=== PATIENT | female | born 1980 | race Caucasian/White ===

== ENCOUNTER 2023-03-11 23:33 | Emergency (ER) | payer MEDICAID, MEDICARE, OTHER ==
[2023-03-12] MEDS ORDERED: Ipratropium/Albuterol 3 ML NEB ONE ×2 (01:15→02:47)
[2023-03-12] MEDS ORDERED: methylPREDNISolone Sod Succ/PF 125 MG/2 ML VIAL ONE (01:35)
[2023-03-12] MEDS ORDERED: Morphine 4 MG/ML VIAL ONE (01:35)
[2023-03-12 02:03] LABS: Hematocrit 41.4 % (36.0-47.0); Hemoglobin 13.6 g/dL (12.0-16.0); Manual Diff?? YES; Mean Corpuscular HGB CONC 32.9 g/dL (32.0-36.0); Mean Corpuscular Hemoglobin 30.6 pg (27.0-31.0); Mean Corpuscular Volume 93.2 fl (78.0-98.0); Mean Platelet Volume 12.8 fL (7.4-10.4); Platelet Count 112 10x3/uL (130-400); Red Blood Cell (RBC) Count 4.44 mill/uL (4.20-5.40); White Blood Cell (WBC) Count 4.4 10x3/uL (4.8-10.8)
[2023-03-12 02:09] LABS: Delete Auto Diff?? YES
[2023-03-12 02:33] LABS: Band 4 % (5-11); CellaVision Operator ID LAB.CLH1; Eosinophils 2 % (0-10); Large Platelets 6.9 % (0-5); Lymphocytes 52 % (21-51); Monocytes 3 % (0-10); Neutrophil 27 % (42-75); Platelet Adequacy Comment Platelets Decreased; Reactive Lymphocytes 11 % (0-10); Total Cell Count 101
[2023-03-12 02:42] LABS: ALT (SGPT) 32 U/L (8-55); AST (SGOT) 34 U/L (5-34); Albumin 3.7 g/dL (3.5-5.0); Alkaline Phosphatase 164 U/L (40-110); Anion Gap 16 mmol/L (10-20); BUN (Urea Nitrogen) 10 mg/dL (7.0-18.7); Calc. Creatinine Clearance 0 mL/min (70-130); Calcium 8.8 mg/dL (7.8-10.44); Carbon Dioxide 22 mmol/L (22-29); Chloride 110 mmol/L (98-107); Estimated GFR 113; Globulin 3.2 g/dL (2.4-3.5); Glucose 85 mg/dL (70-105); Potassium 3.5 mmol/L (3.5-5.1); Protein, Total 6.9 g/dL (6.0-8.3); Sodium 144 mmol/L (136-145)
[2023-03-12 02:56] LABS: Bacteria/HPF None Seen HPF (None Seen); Bilirubin Negative (Negative); Blood, Urine Negative (Negative); CAUTI Indications for Culture Dysuria,urgency,freq; Clarity Turbid (Clear); Glucose, Urine (Dipstick) Normal (Negative); Ketone, Urine Negative (Negative); Leukocyte Negative Leu/uL (Negative); Mucous/LPF 3+ LPF (<2+); Nitrite Negative (Negative); Protein, Urine (Dipstick) 30 mg/dL (Neg-Trace); RBC/HPF 0-3 HPF (0-3); Specific Gravity, Urine 1.041 (1.002-1.036); pH, Urine 5.5 (5.0-9.0)
[2023-03-12 02:57] LABS: Urine Culture Reflex No No
[2023-03-12 03:26] LABS: SARS-CoV-2 NAA Rapid Test Not Detected (NotDetected)
[2023-03-12] MEDS ORDERED: HYDROcodone/Acetaminophen 5/325 mg Tablet ONE (03:35)
[2023-03-12 03:57] LABS: Bilirubin, Total 0.3 mg/dL (0.2-1.2)
== END 2023-03-12 04:45 | disposition home or self-care (01) ==
LOC: ERS 23:33
DX: J44.1 Chronic obstructive pulmonary disease with (acute) exacerbation (principal); I10 Essential (primary) hypertension; F17.210 Nicotine dependence, cigarettes, uncomplicated
CPT/HCPCS: 51701; 71045; 80053; 81001; 83880; 85025; 93005; 96374; 96375; J2270; J2930; J7620

== ENCOUNTER 2023-03-12 09:39 | Inpatient (IN) | payer MEDICARE, MEDICAID ==
[2023-03-12] MEDS ORDERED: HYDROcodone/Acetaminophen 5/325 mg Tablet ONE (10:57)
[2023-03-12] MEDS ORDERED: Acetaminophen 325 MG TAB PO PRN (17:15)
[2023-03-12 17:38] VITALS: BMI 42.8
[2023-03-12] MEDS ORDERED: FLU VACC QS2023-24(6MOS UP)/PF 60 MCG/0.5 ML SYRINGE IM ONE (18:00)
[2023-03-12] MEDS: HYDROcodone/Acetaminophen 10/325 mg Tablet PO PRN (18:10)
[2023-03-12] MEDS: QUEtiapine 300 MG TAB PO SCH (21:18)
[2023-03-12] MEDS: risperiDONE 0.25 MG TAB PO SCH (21:18)
[2023-03-12] MEDS: Topiramate 100 MG TAB PO SCH (21:18)
[2023-03-12] MEDS: levETIRAcetam 500 MG TAB PO SCH (21:19)
[2023-03-12] MEDS: Phenytoin Extended Release 100 MG CAP PO SCH (21:20)
[2023-03-12] MEDS: Ipratropium/Albuterol 3 ML NEB NEB PRN (21:44)
[2023-03-12] MEDS: Pregabalin 75 MG CAP PO SCH (22:16)
[2023-03-13] MEDS: HYDROcodone/Acetaminophen 10/325 mg Tablet PO PRN ×3 (06:24→22:51)
[2023-03-13 08:57] LABS: #Eosinphils 0.1 thou/uL (0.0-0.7); #Monocytes 0.3 thou/uL (0.11-0.59); #Neutrophils 1.4 thou/uL (1.40-6.50); %Basophils 0.2 % (0.0-1.0); %Eosinophils 1.4 % (0.0-10.0); %Lymphocytes 57.5 % (21.0-51.0); %Monocytes 7.4 % (0.0-10.0); %Neutrophils 33.3 % (42.0-75.0); Hematocrit 46.5 % (36.0-47.0); Hemoglobin 14.9 g/dL (12.0-16.0); Mean Corpuscular Hemoglobin 30.6 pg (27.0-31.0); Mean Corpuscular Volume 95.5 fl (78.0-98.0); Mean Platelet Volume 12.7 fL (7.4-10.4); Platelet Count 150 10x3/uL (130-400); RBC Distribution Width 12.7 % (11.5-14.5); Red Blood Cell (RBC) Count 4.87 mill/uL (4.20-5.40); White Blood Cell (WBC) Count 4.3 10x3/uL (4.8-10.8)
[2023-03-13 09:04] LABS: Anion Gap 16 mmol/L (10-20); BUN (Urea Nitrogen) 8 mg/dL (7.0-18.7); Calc. Creatinine Clearance 175 mL/min (70-130); Calcium 8.6 mg/dL (7.8-10.44); Carbon Dioxide 20 mmol/L (22-29); Chloride 110 mmol/L (98-107); Estimated GFR 113; Glucose 74 mg/dL (70-105); Potassium 3.6 mmol/L (3.5-5.1); Sodium 142 mmol/L (136-145)
[2023-03-13] MEDS: Ipratropium/Albuterol 3 ML NEB NEB PRN (09:30)
[2023-03-13] MEDS: QUEtiapine 300 MG TAB PO SCH ×2 (09:39→21:16)
[2023-03-13] MEDS: levETIRAcetam 500 MG TAB PO SCH ×2 (09:39→21:16)
[2023-03-13] MEDS: Phenytoin Extended Release 100 MG CAP PO SCH ×2 (09:39→21:21)
[2023-03-13] MEDS: Topiramate 100 MG TAB PO SCH ×2 (09:39→21:14)
[2023-03-13] MEDS: Pregabalin 75 MG CAP PO SCH ×2 (09:39→21:14)
[2023-03-13] MEDS: Ipratropium/Albuterol 3 ML NEB NEB SCH ×2 (13:20→18:37)
[2023-03-13] MEDS ORDERED: ALPRAZolam 1 MG TAB PO SCH (14:00)
[2023-03-13] MEDS: risperiDONE 0.25 MG TAB PO SCH (21:25)
[2023-03-14] MEDS: HYDROcodone/Acetaminophen 10/325 mg Tablet PO PRN ×4 (05:08→23:34)
[2023-03-14] MEDS: Ipratropium/Albuterol 3 ML NEB NEB SCH ×3 (06:58→18:57)
[2023-03-14 07:55] LABS: #Eosinphils 0.1 thou/uL (0.0-0.7); #Monocytes 0.4 thou/uL (0.11-0.59); #Neutrophils 1.8 thou/uL (1.40-6.50); %Basophils 0.2 % (0.0-1.0); %Eosinophils 1.6 % (0.0-10.0); %Lymphocytes 55.3 % (21.0-51.0); %Monocytes 8.2 % (0.0-10.0); %Neutrophils 34.3 % (42.0-75.0); Hematocrit 41.9 % (36.0-47.0); Hemoglobin 13.7 g/dL (12.0-16.0); Mean Corpuscular HGB CONC 32.7 g/dL (32.0-36.0); Mean Corpuscular Hemoglobin 30.6 pg (27.0-31.0); Mean Corpuscular Volume 93.7 fl (78.0-98.0); Mean Platelet Volume 12.4 fL (7.4-10.4); Platelet Count 172 10x3/uL (130-400); RBC Distribution Width 12.7 % (11.5-14.5); Red Blood Cell (RBC) Count 4.47 mill/uL (4.20-5.40); White Blood Cell (WBC) Count 5.1 10x3/uL (4.8-10.8)
[2023-03-14 08:18] LABS: Anion Gap 14 mmol/L (10-20); BUN (Urea Nitrogen) 17 mg/dL (7.0-18.7); Calc. Creatinine Clearance 153 mL/min (70-130); Calcium 8.8 mg/dL (7.8-10.44); Carbon Dioxide 25 mmol/L (22-29); Chloride 108 mmol/L (98-107); Estimated GFR 106; Glucose 89 mg/dL (70-105); Potassium 3.7 mmol/L (3.5-5.1); Sodium 143 mmol/L (136-145)
[2023-03-14] MEDS: Pregabalin 75 MG CAP PO SCH ×2 (09:18→21:15)
[2023-03-14] MEDS: ALPRAZolam 1 MG TAB PO PRN ×2 (09:18→21:15)
[2023-03-14] MEDS: levETIRAcetam 500 MG TAB PO SCH ×2 (09:18→21:15)
[2023-03-14] MEDS: FLUoxetine HCl 20 MG CAP PO SCH (09:18)
[2023-03-14] MEDS: Atorvastatin Calcium 40 MG TAB PO SCH (09:19)
[2023-03-14] MEDS: Phenytoin Extended Release 100 MG CAP PO SCH ×2 (09:19→21:15)
[2023-03-14] MEDS: QUEtiapine 300 MG TAB PO SCH ×2 (09:19→21:15)
[2023-03-14] MEDS: Topiramate 100 MG TAB PO SCH ×2 (09:19→21:15)
[2023-03-14 16:54] LABS: Amphetamine Not Detected (NotDetected); Barbiturates Screen Detected (NotDetected); Benzodiazepine Screen Detected (NotDetected); Cocaine Metabolite Screen Not Detected (NotDetected); Methadone Not Detected (NotDetected); Methamphetamine Not Detected (NotDetected); Opiate Screen Detected (NotDetected); Oxycodone Screen Not Detected (NotDetected); Phencyclidine (PCP) Not Detected (NotDetected); THC/Cannabinoid Screen Detected (NotDetected); Tricyclic Screen Detected (NotDetected)
[2023-03-14] MEDS: risperiDONE 0.25 MG TAB PO SCH (21:15)
[2023-03-15] MEDS: HYDROcodone/Acetaminophen 10/325 mg Tablet PO PRN ×4 (05:52→18:06)
[2023-03-15] MEDS: ALPRAZolam 1 MG TAB PO PRN (06:37)
[2023-03-15] MEDS: Ipratropium/Albuterol 3 ML NEB NEB SCH ×3 (08:22→18:06)
[2023-03-15] MEDS: Phenytoin Extended Release 100 MG CAP PO SCH ×2 (08:44→21:38)
[2023-03-15] MEDS: Atorvastatin Calcium 40 MG TAB PO SCH (08:45)
[2023-03-15] MEDS: Topiramate 100 MG TAB PO SCH ×2 (08:45→21:38)
[2023-03-15] MEDS: QUEtiapine 300 MG TAB PO SCH ×2 (08:45→21:38)
[2023-03-15] MEDS: FLUoxetine HCl 20 MG CAP PO SCH (08:45)
[2023-03-15] MEDS: levETIRAcetam 500 MG TAB PO SCH ×2 (08:45→21:38)
[2023-03-15] MEDS: Pregabalin 75 MG CAP PO SCH ×2 (08:46→21:38)
[2023-03-15] MEDS: Ipratropium/Albuterol 3 ML NEB NEB PRN (08:47)
[2023-03-15 15:45] LABS: #Eosinphils 0.2 thou/uL (0.0-0.7); #Monocytes 0.5 thou/uL (0.11-0.59); %Basophils 0.3 % (0.0-1.0); %Eosinophils 2.3 % (0.0-10.0); %Lymphocytes 32.5 % (21.0-51.0); %Monocytes 6.6 % (0.0-10.0); %Neutrophils 57.9 % (42.0-75.0); Hematocrit 44.5 % (36.0-47.0); Hemoglobin 14.5 g/dL (12.0-16.0); Mean Corpuscular HGB CONC 32.6 g/dL (32.0-36.0); Mean Corpuscular Volume 95.3 fl (78.0-98.0); Mean Platelet Volume 12.6 fL (7.4-10.4); Platelet Count 193 10x3/uL (130-400); Red Blood Cell (RBC) Count 4.67 mill/uL (4.20-5.40)
[2023-03-15 16:30] LABS: Anion Gap 10 mmol/L (10-20); BUN (Urea Nitrogen) 18 mg/dL (7.0-18.7); Calc. Creatinine Clearance 160 mL/min (70-130); Calcium 9.3 mg/dL (7.8-10.44); Carbon Dioxide 22 mmol/L (22-29); Chloride 110 mmol/L (98-107); Estimated GFR 110; Glucose 122 mg/dL (70-105); Sodium 138 mmol/L (136-145)
[2023-03-15] MEDS ORDERED: ALPRAZolam 1 MG TAB PO PRN (16:58)
[2023-03-15] MEDS: risperiDONE 0.25 MG TAB PO SCH (21:38)
[2023-03-16] MEDS: Ipratropium/Albuterol 3 ML NEB NEB SCH ×4 (06:43→23:30)
[2023-03-16 07:48] LABS: #Eosinphils 0.2 thou/uL (0.0-0.7); #Monocytes 0.5 thou/uL (0.11-0.59); #Neutrophils 3.6 thou/uL (1.40-6.50); %Basophils 0.3 % (0.0-1.0); %Eosinophils 2.7 % (0.0-10.0); %Lymphocytes 39.6 % (21.0-51.0); %Monocytes 6.6 % (0.0-10.0); %Neutrophils 50.5 % (42.0-75.0); Hematocrit 44.7 % (36.0-47.0); Hemoglobin 14.1 g/dL (12.0-16.0); Mean Corpuscular HGB CONC 31.5 g/dL (32.0-36.0); Mean Corpuscular Hemoglobin 30.6 pg (27.0-31.0); Mean Platelet Volume 12.3 fL (7.4-10.4); Platelet Count 190 10x3/uL (130-400); RBC Distribution Width 13.1 % (11.5-14.5); Red Blood Cell (RBC) Count 4.61 mill/uL (4.20-5.40); White Blood Cell (WBC) Count 7.1 10x3/uL (4.8-10.8)
[2023-03-16] MEDS: Pregabalin 75 MG CAP PO SCH ×2 (08:38→21:38)
[2023-03-16] MEDS: Phenytoin Extended Release 100 MG CAP PO SCH ×2 (08:38→21:37)
[2023-03-16] MEDS: FLUoxetine HCl 20 MG CAP PO SCH (08:39)
[2023-03-16] MEDS: HYDROcodone/Acetaminophen 10/325 mg Tablet PO PRN ×5 (08:40→21:42)
[2023-03-16] MEDS: QUEtiapine 300 MG TAB PO SCH ×2 (08:40→21:36)
[2023-03-16] MEDS: levETIRAcetam 500 MG TAB PO SCH ×2 (08:40→21:36)
[2023-03-16] MEDS: Topiramate 100 MG TAB PO SCH ×2 (08:40→21:36)
[2023-03-16] MEDS: Atorvastatin Calcium 40 MG TAB PO SCH (08:41)
[2023-03-16 08:44] LABS: Anion Gap 12 mmol/L (10-20); BUN (Urea Nitrogen) 18 mg/dL (7.0-18.7); Calc. Creatinine Clearance 164 mL/min (70-130); Calcium 9.1 mg/dL (7.8-10.44); Carbon Dioxide 20 mmol/L (22-29); Chloride 111 mmol/L (98-107); Estimated GFR 111; Glucose 94 mg/dL (70-105); Potassium 4.1 mmol/L (3.5-5.1); Sodium 139 mmol/L (136-145)
[2023-03-16] MEDS: risperiDONE 0.25 MG TAB PO SCH (21:36)
[2023-03-16] MEDS ORDERED: Ipratropium/Albuterol 3 ML NEB ONE (23:22)
[2023-03-17 04:38] LABS: #Eosinphils 0.2 thou/uL (0.0-0.7); #Monocytes 0.7 thou/uL (0.11-0.59); %Basophils 0.3 % (0.0-1.0); %Eosinophils 3.6 % (0.0-10.0); %Lymphocytes 40.5 % (21.0-51.0); %Monocytes 10.3 % (0.0-10.0); %Neutrophils 44.7 % (42.0-75.0); Hematocrit 42.7 % (36.0-47.0); Hemoglobin 13.6 g/dL (12.0-16.0); Mean Corpuscular HGB CONC 31.9 g/dL (32.0-36.0); Mean Corpuscular Hemoglobin 30.4 pg (27.0-31.0); Mean Corpuscular Volume 95.5 fl (78.0-98.0); Mean Platelet Volume 12.9 fL (7.4-10.4); Platelet Count 202 10x3/uL (130-400); RBC Distribution Width 12.9 % (11.5-14.5); Red Blood Cell (RBC) Count 4.47 mill/uL (4.20-5.40); White Blood Cell (WBC) Count 6.6 10x3/uL (4.8-10.8)
[2023-03-17 05:00] LABS: Anion Gap 10 mmol/L (10-20); BUN (Urea Nitrogen) 19 mg/dL (7.0-18.7); Calc. Creatinine Clearance 160 mL/min (70-130); Calcium 9.2 mg/dL (7.8-10.44); Carbon Dioxide 23 mmol/L (22-29); Chloride 110 mmol/L (98-107); Estimated GFR 110; Glucose 103 mg/dL (70-105); Potassium 4.2 mmol/L (3.5-5.1); Sodium 139 mmol/L (136-145)
[2023-03-17] MEDS: Ipratropium/Albuterol 3 ML NEB NEB SCH ×3 (06:59→18:16)
[2023-03-17] MEDS: FLUoxetine HCl 20 MG CAP PO SCH (08:30)
[2023-03-17] MEDS: levETIRAcetam 500 MG TAB PO SCH ×2 (08:30→20:30)
[2023-03-17] MEDS: Topiramate 100 MG TAB PO SCH ×2 (08:31→20:30)
[2023-03-17] MEDS: Atorvastatin Calcium 40 MG TAB PO SCH (08:31)
[2023-03-17] MEDS: QUEtiapine 300 MG TAB PO SCH ×2 (08:31→20:30)
[2023-03-17] MEDS: Pregabalin 75 MG CAP PO SCH ×2 (08:31→20:35)
[2023-03-17] MEDS: HYDROcodone/Acetaminophen 10/325 mg Tablet PO PRN ×4 (08:32→20:31)
[2023-03-17] MEDS: Phenytoin Extended Release 100 MG CAP PO SCH ×2 (08:33→20:30)
[2023-03-17] MEDS: methylPREDNISolone Sod Succ 40 MG VIAL IVP SCH ×2 (10:56→17:37)
[2023-03-17] MEDS: Calcium Carbonate 500 MG ChewTAB PO PRN (18:10)
[2023-03-17] MEDS: risperiDONE 0.25 MG TAB PO SCH (20:30)
[2023-03-17] MEDS: predniSONE 20 MG TAB PO SCH (20:31)
[2023-03-17] MEDS: ALPRAZolam 0.5 MG TAB PO PRN (21:28)
[2023-03-18] MEDS: HYDROcodone/Acetaminophen 10/325 mg Tablet PO PRN ×4 (06:42→20:32)
[2023-03-18] MEDS: Calcium Carbonate 500 MG ChewTAB PO PRN ×2 (06:42→15:40)
[2023-03-18 06:58] LABS: #Monocytes 0.1 thou/uL (0.11-0.59); #Neutrophils 5.2 thou/uL (1.40-6.50); %Basophils 0.2 % (0.0-1.0); %Eosinophils 0.2 % (0.0-10.0); %Lymphocytes 18.3 % (21.0-51.0); %Monocytes 1.7 % (0.0-10.0); %Neutrophils 78.8 % (42.0-75.0); Hemoglobin 14.3 g/dL (12.0-16.0); Mean Corpuscular HGB CONC 31.8 g/dL (32.0-36.0); Mean Corpuscular Hemoglobin 30.7 pg (27.0-31.0); Mean Corpuscular Volume 96.6 fl (78.0-98.0); Mean Platelet Volume 13.2 fL (7.4-10.4); Platelet Count 216 10x3/uL (130-400); RBC Distribution Width 12.9 % (11.5-14.5); Red Blood Cell (RBC) Count 4.66 mill/uL (4.20-5.40); White Blood Cell (WBC) Count 6.6 10x3/uL (4.8-10.8)
[2023-03-18] MEDS: Ipratropium/Albuterol 3 ML NEB NEB SCH ×3 (07:11→19:07)
[2023-03-18 07:43] LABS: Anion Gap 14 mmol/L (10-20); BUN (Urea Nitrogen) 20 mg/dL (7.0-18.7); Calc. Creatinine Clearance 169 mL/min (70-130); Calcium 9.3 mg/dL (7.8-10.44); Carbon Dioxide 18 mmol/L (22-29); Chloride 110 mmol/L (98-107); Estimated GFR 112; Glucose 148 mg/dL (70-105); Potassium 4.7 mmol/L (3.5-5.1); Sodium 137 mmol/L (136-145)
[2023-03-18] MEDS: levETIRAcetam 500 MG TAB PO SCH ×2 (08:37→20:33)
[2023-03-18] MEDS: Pregabalin 75 MG CAP PO SCH ×2 (08:38→20:33)
[2023-03-18] MEDS: Atorvastatin Calcium 40 MG TAB PO SCH (08:39)
[2023-03-18] MEDS: FLUoxetine HCl 20 MG CAP PO SCH (08:39)
[2023-03-18] MEDS: Topiramate 100 MG TAB PO SCH ×2 (08:39→20:32)
[2023-03-18] MEDS: QUEtiapine 300 MG TAB PO SCH ×2 (08:39→20:33)
[2023-03-18] MEDS: Phenytoin Extended Release 100 MG CAP PO SCH ×2 (08:39→20:32)
[2023-03-18] MEDS: predniSONE 20 MG TAB PO SCH (08:39)
[2023-03-18] MEDS: traZODone HCl 50 MG TAB PO SCH ×2 (10:46→11:37)
[2023-03-18] MEDS: risperiDONE 0.25 MG TAB PO SCH (20:33)
[2023-03-18] MEDS: ALPRAZolam 0.5 MG TAB PO PRN (21:21)
[2023-03-19 05:08] LABS: #Monocytes 0.5 thou/uL (0.11-0.59); #Neutrophils 4.3 thou/uL (1.40-6.50); %Basophils 0.3 % (0.0-1.0); %Eosinophils 0.3 % (0.0-10.0); %Lymphocytes 35.4 % (21.0-51.0); %Monocytes 6.9 % (0.0-10.0); %Neutrophils 56.4 % (42.0-75.0); Hematocrit 42.2 % (36.0-47.0); Hemoglobin 13.7 g/dL (12.0-16.0); Mean Corpuscular HGB CONC 32.5 g/dL (32.0-36.0); Mean Corpuscular Hemoglobin 30.9 pg (27.0-31.0); Mean Corpuscular Volume 95.3 fl (78.0-98.0); Mean Platelet Volume 13.4 fL (7.4-10.4); Platelet Count 190 10x3/uL (130-400); RBC Distribution Width 12.9 % (11.5-14.5); Red Blood Cell (RBC) Count 4.43 mill/uL (4.20-5.40); White Blood Cell (WBC) Count 7.6 10x3/uL (4.8-10.8)
[2023-03-19 05:38] LABS: Anion Gap 13 mmol/L (10-20); BUN (Urea Nitrogen) 19 mg/dL (7.0-18.7); Calc. Creatinine Clearance 184 mL/min (70-130); Calcium 9.2 mg/dL (7.8-10.44); Carbon Dioxide 21 mmol/L (22-29); Chloride 110 mmol/L (98-107); Estimated GFR 114; Glucose 136 mg/dL (70-105); Potassium 3.3 mmol/L (3.5-5.1); Sodium 141 mmol/L (136-145)
[2023-03-19] MEDS: HYDROcodone/Acetaminophen 10/325 mg Tablet PO PRN ×5 (06:39→23:32)
[2023-03-19] MEDS: Ipratropium/Albuterol 3 ML NEB NEB SCH ×3 (07:04→19:35)
[2023-03-19] MEDS: Atorvastatin Calcium 40 MG TAB PO SCH (08:52)
[2023-03-19] MEDS: QUEtiapine 300 MG TAB PO SCH ×2 (08:53→21:01)
[2023-03-19] MEDS: FLUoxetine HCl 20 MG CAP PO SCH (08:53)
[2023-03-19] MEDS: Topiramate 100 MG TAB PO SCH ×2 (08:53→21:01)
[2023-03-19] MEDS: Pregabalin 75 MG CAP PO SCH ×2 (08:53→20:57)
[2023-03-19] MEDS: predniSONE 20 MG TAB PO SCH (08:53)
[2023-03-19] MEDS: Phenytoin Extended Release 100 MG CAP PO SCH ×2 (08:53→21:07)
[2023-03-19] MEDS: levETIRAcetam 500 MG TAB PO SCH ×2 (08:53→21:00)
[2023-03-19] MEDS: Calcium Carbonate 500 MG ChewTAB PO PRN (08:54)
[2023-03-19] MEDS ORDERED: Benzonatate 100 MG CAP PO PRN (16:42)
[2023-03-19] MEDS ORDERED: Benzonatate 100 MG CAP PO SCH (16:45)
[2023-03-19] MEDS: ALPRAZolam 1 MG TAB PO PRN (17:20)
[2023-03-19] MEDS: risperiDONE 0.25 MG TAB PO SCH (20:59)
[2023-03-20 04:52] LABS: Chloride 111 mmol/L (98-107); Potassium 4.1 mmol/L (3.5-5.1); Sodium 139 mmol/L (136-145)
[2023-03-20 04:53] LABS: Calcium 8.6 mg/dL (7.8-10.44); Glucose 87 mg/dL (70-105)
[2023-03-20 04:55] LABS: Anion Gap 17 mmol/L (10-20); Carbon Dioxide 15 mmol/L (22-29)
[2023-03-20 04:57] LABS: BUN (Urea Nitrogen) 27 mg/dL (7.0-18.7); Calc. Creatinine Clearance 164 mL/min (70-130); Estimated GFR 111
[2023-03-20] MEDS: Ipratropium/Albuterol 3 ML NEB NEB SCH ×3 (08:11→19:28)
[2023-03-20] MEDS: levETIRAcetam 500 MG TAB PO SCH ×2 (08:44→21:25)
[2023-03-20] MEDS: ALPRAZolam 1 MG TAB PO PRN ×2 (08:46→16:17)
[2023-03-20] MEDS: QUEtiapine 300 MG TAB PO SCH ×2 (08:46→21:27)
[2023-03-20] MEDS: Atorvastatin Calcium 40 MG TAB PO SCH (08:46)
[2023-03-20] MEDS: HYDROcodone/Acetaminophen 10/325 mg Tablet PO PRN ×4 (08:47→21:26)
[2023-03-20] MEDS: FLUoxetine HCl 20 MG CAP PO SCH (08:47)
[2023-03-20] MEDS: Pregabalin 75 MG CAP PO SCH ×2 (08:47→21:25)
[2023-03-20] MEDS: predniSONE 20 MG TAB PO SCH (08:47)
[2023-03-20] MEDS: Topiramate 100 MG TAB PO SCH ×2 (08:47→21:26)
[2023-03-20] MEDS: Phenytoin Extended Release 100 MG CAP PO SCH ×2 (08:52→21:24)
[2023-03-20] MEDS ORDERED: Fleet Saline Enema 133 ML BOT PR SCH (09:00)
[2023-03-20 10:07] LABS: #Eosinphils 0.1 thou/uL (0.0-0.7); #Monocytes 0.6 thou/uL (0.11-0.59); #Neutrophils 3.1 thou/uL (1.40-6.50); %Basophils 0.4 % (0.0-1.0); %Eosinophils 1.2 % (0.0-10.0); %Lymphocytes 47.2 % (21.0-51.0); %Monocytes 8.7 % (0.0-10.0); %Neutrophils 42.1 % (42.0-75.0); Hemoglobin 13.5 g/dL (12.0-16.0); Mean Corpuscular HGB CONC 32.1 g/dL (32.0-36.0); Mean Corpuscular Hemoglobin 30.8 pg (27.0-31.0); Mean Corpuscular Volume 95.9 fl (78.0-98.0); Platelet Count 154 10x3/uL (130-400); RBC Distribution Width 12.9 % (11.5-14.5); Red Blood Cell (RBC) Count 4.38 mill/uL (4.20-5.40); White Blood Cell (WBC) Count 7.3 10x3/uL (4.8-10.8)
[2023-03-20] MEDS ORDERED: Magnesium Citrate 300 ML BOT PO SCH (16:15)
[2023-03-20] MEDS ORDERED: Lactulose 20 GM (30 mL) UDCUP PO SCH (17:30)
[2023-03-20] MEDS: risperiDONE 0.25 MG TAB PO SCH (21:27)
[2023-03-20] MEDS: Senokot S 8.6-50 MG TAB PO SCH (21:27)
[2023-03-21 04:06] LABS: #Eosinphils 0.1 thou/uL (0.0-0.7); %Basophils 0.5 % (0.0-1.0); %Eosinophils 0.6 % (0.0-10.0); %Lymphocytes 41.5 % (21.0-51.0); %Neutrophils 46.1 % (42.0-75.0); Hematocrit 43.3 % (36.0-47.0); Hemoglobin 13.6 g/dL (12.0-16.0); Mean Corpuscular HGB CONC 31.4 g/dL (32.0-36.0); Mean Corpuscular Hemoglobin 30.8 pg (27.0-31.0); Mean Platelet Volume 12.7 fL (7.4-10.4); Platelet Count 162 10x3/uL (130-400); RBC Distribution Width 12.9 % (11.5-14.5); Red Blood Cell (RBC) Count 4.42 mill/uL (4.20-5.40); White Blood Cell (WBC) Count 8.8 10x3/uL (4.8-10.8)
[2023-03-21 04:34] LABS: Anion Gap 14 mmol/L (10-20); BUN (Urea Nitrogen) 17 mg/dL (7.0-18.7); Calc. Creatinine Clearance 169 mL/min (70-130); Calcium 8.4 mg/dL (7.8-10.44); Carbon Dioxide 18 mmol/L (22-29); Chloride 111 mmol/L (98-107); Estimated GFR 112; Glucose 99 mg/dL (70-105); Potassium 4.1 mmol/L (3.5-5.1); Sodium 139 mmol/L (136-145)
[2023-03-21] MEDS: HYDROcodone/Acetaminophen 10/325 mg Tablet PO PRN ×4 (06:21→21:25)
[2023-03-21] MEDS: Ipratropium/Albuterol 3 ML NEB NEB SCH ×3 (06:58→19:43)
[2023-03-21] MEDS: predniSONE 20 MG TAB PO SCH (08:45)
[2023-03-21] MEDS: ALPRAZolam 1 MG TAB PO PRN ×2 (08:46→16:20)
[2023-03-21] MEDS: Atorvastatin Calcium 40 MG TAB PO SCH (08:47)
[2023-03-21] MEDS: FLUoxetine HCl 20 MG CAP PO SCH (08:47)
[2023-03-21] MEDS: Topiramate 100 MG TAB PO SCH ×2 (08:47→21:18)
[2023-03-21] MEDS: Pregabalin 75 MG CAP PO SCH ×2 (08:47→21:21)
[2023-03-21] MEDS: levETIRAcetam 500 MG TAB PO SCH ×2 (08:48→21:19)
[2023-03-21] MEDS: Senokot S 8.6-50 MG TAB PO SCH ×2 (08:48→21:19)
[2023-03-21] MEDS: Polyethylene Glycol 3350 17 GM Packet PO SCH (08:48)
[2023-03-21] MEDS ORDERED: Methylnaltrexone 12 MG (0.6 mL) VIAL SC SCH (10:00)
[2023-03-21 10:34] LABS: BHCG - Serum Negative (NEGATIVE); Pregs Control Background? CLEAR/WHITE (CLR/WHITE); Pregs Control Bar Appear? YES (CONTROL BAR)
[2023-03-21] MEDS: Phenytoin Extended Release 100 MG CAP PO SCH ×2 (12:44→21:18)
[2023-03-21] MEDS: Nicotine 21 MG PATCH TD SCH (16:20)
[2023-03-21] MEDS: QUEtiapine 300 MG TAB PO SCH (21:18)
[2023-03-21] MEDS: risperiDONE 0.25 MG TAB PO SCH (21:19)
[2023-03-22] MEDS: ALPRAZolam 1 MG TAB PO PRN ×3 (00:13→17:05)
[2023-03-22 04:01] LABS: #Eosinphils 0.1 thou/uL (0.0-0.7); #Monocytes 0.8 thou/uL (0.11-0.59); #Neutrophils 4.1 thou/uL (1.40-6.50); %Basophils 0.5 % (0.0-1.0); %Lymphocytes 40.5 % (21.0-51.0); %Monocytes 9.1 % (0.0-10.0); %Neutrophils 48.7 % (42.0-75.0); Hematocrit 43.1 % (36.0-47.0); Hemoglobin 13.7 g/dL (12.0-16.0); Mean Corpuscular HGB CONC 31.8 g/dL (32.0-36.0); Mean Corpuscular Hemoglobin 30.6 pg (27.0-31.0); Mean Corpuscular Volume 96.4 fl (78.0-98.0); Platelet Count 152 10x3/uL (130-400); RBC Distribution Width 12.7 % (11.5-14.5); Red Blood Cell (RBC) Count 4.47 mill/uL (4.20-5.40); White Blood Cell (WBC) Count 8.4 10x3/uL (4.8-10.8)
[2023-03-22] MEDS: HYDROcodone/Acetaminophen 10/325 mg Tablet PO PRN ×4 (05:57→20:29)
[2023-03-22 06:45] LABS: Anion Gap 15 mmol/L (10-20); BUN (Urea Nitrogen) 15 mg/dL (7.0-18.7); Calc. Creatinine Clearance 172 mL/min (70-130); Calcium 8.8 mg/dL (7.8-10.44); Carbon Dioxide 19 mmol/L (22-29); Chloride 111 mmol/L (98-107); Estimated GFR 112; Glucose 80 mg/dL (70-105); Potassium 4.3 mmol/L (3.5-5.1); Sodium 141 mmol/L (136-145)
[2023-03-22] MEDS: Ipratropium/Albuterol 3 ML NEB NEB SCH ×3 (07:32→19:51)
[2023-03-22] MEDS: Pregabalin 75 MG CAP PO SCH ×2 (08:44→20:32)
[2023-03-22] MEDS: FLUoxetine HCl 20 MG CAP PO SCH (08:44)
[2023-03-22] MEDS: levETIRAcetam 500 MG TAB PO SCH ×2 (08:45→20:31)
[2023-03-22] MEDS: Phenytoin Extended Release 100 MG CAP PO SCH ×2 (08:45→20:30)
[2023-03-22] MEDS: Senokot S 8.6-50 MG TAB PO SCH ×2 (08:45→20:31)
[2023-03-22] MEDS: Atorvastatin Calcium 40 MG TAB PO SCH (08:45)
[2023-03-22] MEDS: Topiramate 100 MG TAB PO SCH ×2 (08:45→20:32)
[2023-03-22] MEDS: predniSONE 20 MG TAB PO SCH (08:45)
[2023-03-22] MEDS: Polyethylene Glycol 3350 17 GM Packet PO SCH (08:46)
[2023-03-22] MEDS ORDERED: Mineral Oil ENEMA PR SCH (10:30)
[2023-03-22] MEDS: Nicotine 21 MG PATCH TD SCH (16:00)
[2023-03-22] MEDS: QUEtiapine 300 MG TAB PO SCH (20:31)
[2023-03-22] MEDS: risperiDONE 0.25 MG TAB PO SCH (20:31)
[2023-03-23 04:49] LABS: #Eosinphils 0.1 thou/uL (0.0-0.7); #Monocytes 0.9 thou/uL (0.11-0.59); #Neutrophils 4.6 thou/uL (1.40-6.50); %Basophils 0.4 % (0.0-1.0); %Eosinophils 0.9 % (0.0-10.0); %Lymphocytes 39.4 % (21.0-51.0); %Monocytes 9.2 % (0.0-10.0); %Neutrophils 49.7 % (42.0-75.0); Hematocrit 41.7 % (36.0-47.0); Hemoglobin 13.4 g/dL (12.0-16.0); Mean Corpuscular HGB CONC 32.1 g/dL (32.0-36.0); Mean Corpuscular Hemoglobin 30.5 pg (27.0-31.0); Mean Corpuscular Volume 94.8 fl (78.0-98.0); Mean Platelet Volume 13.5 fL (7.4-10.4); Platelet Count 165 10x3/uL (130-400); RBC Distribution Width 12.8 % (11.5-14.5); White Blood Cell (WBC) Count 9.3 10x3/uL (4.8-10.8)
[2023-03-23 05:17] LABS: Anion Gap 10 mmol/L (10-20); BUN (Urea Nitrogen) 21 mg/dL (7.0-18.7); Calc. Creatinine Clearance 172 mL/min (70-130); Calcium 8.8 mg/dL (7.8-10.44); Carbon Dioxide 24 mmol/L (22-29); Chloride 109 mmol/L (98-107); Estimated GFR 112; Glucose 87 mg/dL (70-105); Sodium 139 mmol/L (136-145)
[2023-03-23] MEDS: HYDROcodone/Acetaminophen 10/325 mg Tablet PO PRN ×4 (06:06→20:54)
[2023-03-23] MEDS: ALPRAZolam 1 MG TAB PO PRN ×3 (06:07→20:55)
[2023-03-23] MEDS: Ipratropium/Albuterol 3 ML NEB NEB SCH ×3 (07:18→19:30)
[2023-03-23] MEDS: Pregabalin 75 MG CAP PO SCH ×2 (09:15→20:53)
[2023-03-23] MEDS: levETIRAcetam 500 MG TAB PO SCH ×2 (09:16→20:53)
[2023-03-23] MEDS: Topiramate 100 MG TAB PO SCH ×2 (09:16→20:54)
[2023-03-23] MEDS: Senokot S 8.6-50 MG TAB PO SCH ×2 (09:16→20:54)
[2023-03-23] MEDS: Atorvastatin Calcium 40 MG TAB PO SCH (09:16)
[2023-03-23] MEDS: predniSONE 20 MG TAB PO SCH (09:16)
[2023-03-23] MEDS: FLUoxetine HCl 20 MG CAP PO SCH (09:16)
[2023-03-23] MEDS: Polyethylene Glycol 3350 17 GM Packet PO SCH (09:17)
[2023-03-23] MEDS: Phenytoin Extended Release 100 MG CAP PO SCH ×2 (09:17→20:55)
[2023-03-23] MEDS: Nicotine 21 MG PATCH TD SCH (17:54)
[2023-03-23] MEDS: risperiDONE 0.25 MG TAB PO SCH (20:53)
[2023-03-23] MEDS: QUEtiapine 300 MG TAB PO SCH (20:53)
[2023-03-24] MEDS: HYDROcodone/Acetaminophen 10/325 mg Tablet PO PRN ×4 (03:49→20:01)
[2023-03-24 04:37] LABS: #Eosinphils 0.1 thou/uL (0.0-0.7); #Monocytes 0.7 thou/uL (0.11-0.59); #Neutrophils 5.2 thou/uL (1.40-6.50); %Basophils 0.3 % (0.0-1.0); %Eosinophils 0.6 % (0.0-10.0); %Lymphocytes 36.7 % (21.0-51.0); %Monocytes 7.3 % (0.0-10.0); %Neutrophils 54.7 % (42.0-75.0); Hematocrit 41.2 % (36.0-47.0); Hemoglobin 13.2 g/dL (12.0-16.0); Mean Corpuscular Hemoglobin 30.6 pg (27.0-31.0); Mean Corpuscular Volume 95.6 fl (78.0-98.0); Mean Platelet Volume 13.2 fL (7.4-10.4); Platelet Count 167 10x3/uL (130-400); RBC Distribution Width 12.8 % (11.5-14.5); Red Blood Cell (RBC) Count 4.31 mill/uL (4.20-5.40); White Blood Cell (WBC) Count 9.5 10x3/uL (4.8-10.8)
[2023-03-24 04:40] LABS: Anion Gap 14 mmol/L (10-20); BUN (Urea Nitrogen) 19 mg/dL (7.0-18.7); Calc. Creatinine Clearance 181 mL/min (70-130); Calcium 8.7 mg/dL (7.8-10.44); Carbon Dioxide 20 mmol/L (22-29); Chloride 108 mmol/L (98-107); Estimated GFR 114; Glucose 83 mg/dL (70-105); Potassium 4.1 mmol/L (3.5-5.1); Sodium 138 mmol/L (136-145)
[2023-03-24] MEDS: Ipratropium/Albuterol 3 ML NEB NEB SCH ×2 (07:37→14:08)
[2023-03-24] MEDS: predniSONE 20 MG TAB PO SCH (09:31)
[2023-03-24] MEDS: Topiramate 100 MG TAB PO SCH ×2 (09:32→20:00)
[2023-03-24] MEDS: Pregabalin 75 MG CAP PO SCH ×2 (09:32→20:02)
[2023-03-24] MEDS: Senokot S 8.6-50 MG TAB PO SCH ×2 (09:32→20:00)
[2023-03-24] MEDS: Atorvastatin Calcium 40 MG TAB PO SCH (09:32)
[2023-03-24] MEDS: FLUoxetine HCl 20 MG CAP PO SCH (09:32)
[2023-03-24] MEDS: Polyethylene Glycol 3350 17 GM Packet PO SCH (09:32)
[2023-03-24] MEDS: levETIRAcetam 500 MG TAB PO SCH ×2 (09:41→19:58)
[2023-03-24] MEDS: Phenytoin Extended Release 100 MG CAP PO SCH ×2 (09:41→19:59)
[2023-03-24] MEDS: ALPRAZolam 1 MG TAB PO PRN ×2 (09:41→20:00)
[2023-03-24] MEDS ORDERED: Ipratropium/Albuterol 3 ML NEB NEB PRN (14:11)
[2023-03-24] MEDS: Nicotine 21 MG PATCH TD SCH (18:15)
[2023-03-24] MEDS: QUEtiapine 300 MG TAB PO SCH (20:01)
[2023-03-24] MEDS: risperiDONE 0.25 MG TAB PO SCH (20:02)
[2023-03-25] MEDS: ALPRAZolam 1 MG TAB PO PRN (04:07)
[2023-03-25] MEDS: HYDROcodone/Acetaminophen 10/325 mg Tablet PO PRN ×3 (04:07→13:21)
[2023-03-25 05:38] LABS: #Eosinphils 0.1 thou/uL (0.0-0.7); #Monocytes 0.7 thou/uL (0.11-0.59); #Neutrophils 5.5 thou/uL (1.40-6.50); %Basophils 0.4 % (0.0-1.0); %Eosinophils 1.1 % (0.0-10.0); %Lymphocytes 33.2 % (21.0-51.0); %Neutrophils 57.9 % (42.0-75.0); Hematocrit 41.9 % (36.0-47.0); Hemoglobin 13.5 g/dL (12.0-16.0); Mean Corpuscular HGB CONC 32.2 g/dL (32.0-36.0); Mean Corpuscular Hemoglobin 30.8 pg (27.0-31.0); Mean Corpuscular Volume 95.4 fl (78.0-98.0); Mean Platelet Volume 13.5 fL (7.4-10.4); Platelet Count 161 10x3/uL (130-400); Red Blood Cell (RBC) Count 4.39 mill/uL (4.20-5.40); White Blood Cell (WBC) Count 9.5 10x3/uL (4.8-10.8)
[2023-03-25 05:52] LABS: Anion Gap 14 mmol/L (10-20); BUN (Urea Nitrogen) 20 mg/dL (7.0-18.7); Calc. Creatinine Clearance 172 mL/min (70-130); Calcium 8.5 mg/dL (7.8-10.44); Carbon Dioxide 20 mmol/L (22-29); Chloride 108 mmol/L (98-107); Estimated GFR 112; Glucose 115 mg/dL (70-105); Potassium 3.6 mmol/L (3.5-5.1); Sodium 138 mmol/L (136-145)
[2023-03-25] MEDS: levETIRAcetam 500 MG TAB PO SCH (08:41)
[2023-03-25] MEDS: Topiramate 100 MG TAB PO SCH (08:41)
[2023-03-25] MEDS: FLUoxetine HCl 20 MG CAP PO SCH (08:41)
[2023-03-25] MEDS: predniSONE 20 MG TAB PO SCH (08:41)
[2023-03-25] MEDS: Senokot S 8.6-50 MG TAB PO SCH (08:41)
[2023-03-25] MEDS: Atorvastatin Calcium 40 MG TAB PO SCH (08:42)
[2023-03-25] MEDS: Pregabalin 75 MG CAP PO SCH (08:42)
[2023-03-25] MEDS: Phenytoin Extended Release 100 MG CAP PO SCH (08:42)
[2023-03-25] MEDS: Polyethylene Glycol 3350 17 GM Packet PO SCH (08:43)
[2023-03-25 15:24] VITALS: BP 138/78; TEMP 97.8
== END 2023-03-25 15:29 | DRG 153 ==
LOC: ERS 09:39 → ERHOLD 14:24 → T4-B 17:28
PROVIDERS: ADMIT Internal Medicine; ATTEND Internal Medicine
DX: J11.1 Influenza due to unidentified influenza virus with other respiratory manifestations (principal); G82.20 Paraplegia, unspecified; J44.1 Chronic obstructive pulmonary disease with (acute) exacerbation; G40.909 Epilepsy, unspecified, not intractable, without status epilepticus; E66.9 Obesity, unspecified; G47.00 Insomnia, unspecified; E78.5 Hyperlipidemia, unspecified; F31.9 Bipolar disorder, unspecified; K59.00 Constipation, unspecified; Z88.1 Allergy status to other antibiotic agents; Z98.890 Other specified postprocedural states; Z79.899 Other long term (current) drug therapy; I10 Essential (primary) hypertension; F17.210 Nicotine dependence, cigarettes, uncomplicated
CPT/HCPCS: 36415; 36416; 51701; 71045; 74019; 80048; 80053; 80306; 81001; 82140; 83880; 84703; 85025; 93005; 94640; 96374; 96375; 99284; J2212; J2270; J2920; J2930; J7512; J7620